=== PATIENT | female | born 1990 | race Caucasian/White ===

== ENCOUNTER 2022-01-18 22:02 | Emergency (ER) | payer OTHER ==
[2022-01-18] MEDS ORDERED: Dexamethasone 10 MG/ML VIAL ONE (23:08)
[2022-01-18] MEDS ORDERED: diphenhydrAMINE 25 MG CAP ONE (23:09)
== END 2022-01-18 23:22 | disposition home or self-care (01) ==
LOC: CSHERS 22:02
DX: T78.1XXA Other adverse food reactions, not elsewhere classified, initial encounter (principal); R06.2 Wheezing
CPT/HCPCS: 99284; J1100